=== PATIENT | female | born 1980 | race Caucasian/White ===

== ENCOUNTER 2022-01-25 23:11 | Emergency (ER) | payer OTHER, SELFPAY ==
[2022-01-25 23:26] VITALS: BP 199/93; PULSE 60; RESP 16; TEMP 36.2; O2SAT 97; BMI 33.2
--- NOTE | 2022-01-25 23:36 | DI.RAD.S_ITS ---
PROCEDURE: XR CHEST 1V INDICATIONS: chest pain TECHNIQUE: One view of the chest was acquired. COMPARISON: [facility], , CHEST 1 VIEW, 04/21/2016, 13:06. FINDINGS: Surgical changes and devices: Left chest wall pacemaker and leads appear similar in position. Lungs and pleura: Lungs are clear. No pleural effusions or pneumothorax. Mediastinum: Mediastinal contours appear normal. Heart size is normal. Bones and chest wall: No suspicious bony lesions. Overlying soft tissues appear unremarkable. IMPRESSION: 1. No acute cardiopulmonary disease. Dictated by: Archie Caballero M.D. on 01/26/2022 at 1:07 Approved by: Archie Caballero M.D. on 01/26/2022 at 1:08
[2022-01-26 00:03] LABS: Add Manual Diff / Slide Review NO; Basophils Absolute Auto 100 /uL (0-100); Basophils Percent Auto 0.3 % (0-2); Eosinophils Absolute Auto 100 /uL (0-450); Eosinophils Percent Auto 0.8 % (2-4); Lymphocytes Absolute Auto 2000 /uL (1100-4500); Lymphocytes Percent Auto 13.1 % (25-40); Mean Corpuscular Hemoglobin 29.9 PG (26-34); Monocytes Absolute Auto 500 /uL (0-900); Monocytes Percent Auto 3.1 % (3-14); Neutrophils Absolute Auto 12500 /uL (1500-7000); Neutrophils Percent Auto 82.7 % (50-75); Platelet Count 183 X10^3/uL (150-400); Red Cell Distribution Width 14.2 % (11.6-14.8); White Blood Cell Count 15.1 X10^3/uL (4.5-11.0)
[2022-01-26 00:07] LABS: INR 1.1 (0.9-1.3); Prothrombin Time 12.1 SECONDS (10.1-12.7)
[2022-01-26 00:09] LABS: PTT Partial Thromboplastin Tim 31 SECONDS (26-36)
[2022-01-26 00:10] LABS: Alanine Aminotransferase 24 IU/L (<35); Albumin 4.1 g/dL (3.5-5.0); Albumin Globulin Ratio 1.3 (1.0-2.8); Alkaline Phosphatase 79 U/L (38-126); Aspartate Aminotransferase 19 IU/L (14-36); BUN Creatinine Ratio 25.6 (6-22); Bilirubin Total 0.3 mg/dL (0.2-1.3); Blood Urea Nitrogen 21 mg/dL (7-17); Calcium 8.3 mg/dL (8.4-10.2); Carbon Dioxide 24 mmol/L (22-32); Chloride 106 mmol/L (98-107); Creatine Kinase 61 U/L (30-135); Estimated Glomerular Filt Rate > 60 mL/min (>60); Globulin 3.1 g/dL (1.7-4.1); Glucose 181 mg/dL (70-100); HEMOLYSIS 18 (0-50); Lipase 66 U/L (23-300); Magnesium 1.9 mg/dL (1.6-2.3); Potassium 3.8 mmol/L (3.4-5.1); Sodium 137 mmol/L (137-145); Total Protein 7.2 g/dL (6.3-8.2)
--- NOTE | 2022-01-26 00:15 | ED.GENADULT ---
HPI - General Adult General Chief complaint: Dizziness Stated complaint: Dizzy.nausea/lt. hand/arm tingle Time Seen by Provider: 01/25/22 23:33 Source: patient Mode of arrival: Ambulatory Limitations: no limitations History of Present Illness HPI narrative: Patient is a 42-year-old female. 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 This has been in place for many years. She is not on anti coagulation. She states she has had a couple episodes that last less than 2 minutes of sudden onset of some dizziness. This is more of a swing from [id number] and not a room spinning/vertigo sensation. Is associated with some nausea. She then states she starts to feel like she has some tingling that starts in her left fingers and moves up her arm. No chest pain. No palpitations. No shortness of breath. Symptoms lasts for short periods of time. Somewhat better when she closes her eyes and waits for things to recover. The symptoms do completely recover. They have happened a couple times like this. Per her description it sounds like she does have a demand pacemaker although I am not 100% sure this. Related Data Home Medications Medication Instructions Recorded Confirmed levonorgestrel 20 mcg/24 hours (7 intrauterine 07/20/18/ yrs) 52 mg intrauterine device (Mirena) Allergies Allergy/AdvReac Type Severity Reaction Status Date / Time latex [LATEX] Allergy Unknown Unverified 02/23/18 10:32 Review of Systems Review of Systems ROS Unobtainable: All systems reviewed & are unremarkable except as noted in HPI and below Patient History Medical History Acute cholecystitis Pacemaker Strain of chest wall Social History Smoking Status: Current every day smoker Smoking Status: Current every day smoker Exam Initial Vital Signs Initial Vital Signs: Vital Signs Temperature 97.2 F L 01/25/22 23:26 Pulse Rate 60 01/25/22 23:26 Respiratory Rate 16 01/25/22 23:26 Blood Pressure 199/93 H 01/25/22 23:26 Pulse Oximetry 97 01/25/22 23:26 Oxygen Delivery Method 01/25/22 23:26 Const General: cooperative, comfortable and No ill appearing HENKS Head: normal to inspection and normocephalic Chest Chest: normal inspection of the chest Resp Effort & Inspection: normal respiratory effort Auscultation: clear to auscultation bilaterally Cardio Rate: regular rate Rhythm: regular rhythm GI Inspection: normal to inspection Skin General: no rashes or lesions noted Neuro General: patient alert, patient awake, patient oriented x3 and moves all extremities Speech: speech normal Gait: normal gait Extrem General: normal to inspection and capillary refill normal Psych Appearance: grossly normal and well kempt Course Orders Ordered: ED Orders 01/25/22 23:36 XR chest 1V Stat 01/25/22 23:43 EKG-12 Lead Stat 01/25/22 23:52 Complete Blood Count AUTO DIFF Stat Comprehensive Metabolic Panel Stat Lipase Stat Magnesium Stat Partial Thromboplastin Time Stat Prothrombin Time INR Stat Troponin & CK Cardiac Panel Stat Vital Signs Vital signs: Vital Signs - 8 hr 01/25/22 23:26 01/26/22 01:42 Temperature 97.2 F L Pulse Rate 60 Respiratory Rate 16 17 Blood Pressure 199/93 H 179/87 H Pulse Oximetry 97 97 Oxygen Delivery Method Room Air Room Air Medical Decision Making Lab Data Lab results reviewed: Yes I reviewed the patient's lab results. Result diagrams: 01/25/22 23:52 01/25/22 23:52 Labs: Lab Results 01/25/22 01/25/22 01/25/22 Range/Units 23:52 23:52 23:52 WBC 15.1 H (4.5-11.0) X10^3/uL RBC 5.00 (4.0-5.2) X10^6/uL Hgb 15.0 (12.0-16.0) g/dL Hct 44.0 (36-46) % MCV 88.0 (80-100) fL MCH 29.9 (26-34) PG MCHC 34.0 (30-36) % RDW 14.2 (11.6-14.8) % Plt Count 183 (150-400) X10^3/uL Neut % (Auto) 82.7 H (50-75) % Lymph % (Auto) 13.1 L (25-40) % [place] % (Auto) 3.1 (3-14) % Eos % (Auto) 0.8 L (2-4) % Baso % (Auto) 0.3 (0-2) % Neut # (Auto) 77445 H (6376-7456) /uL Lymph # (Auto) 2000 (6987-9363) /uL [place] # (Auto) 500 (0-900) /uL Eos # (Auto) 100 (0-450) /uL Baso # (Auto) 100 (0-100) /uL PT 12.1 (10.1-12.7) SECONDS INR 1.1 (0.9-1.3) APTT 31 (26-36) SECONDS Sodium 137 (137-145) mmol/L Potassium 3.8 (3.4-5.1) mmol/L Chloride 106 (98-107) mmol/L Carbon Dioxide 24 (22-32) mmol/L BUN 21 H (7-17) mg/dL Creatinine 0.82 (0.52-1.04) mg/dL Estimated GFR > 60 (>60) mL/min BUN/Creatinine Ratio 25.6 H (6-22) Glucose 181 H (70-100) mg/dL Calcium 8.3 L (8.4-10.2) mg/dL Magnesium 1.9 (1.6-2.3) mg/dL Total Bilirubin 0.3 (0.2-1.3) mg/dL AST 19 (14-36) IU/L ALT 24 (<35) IU/L Alkaline Phosphatase 79 (38-126) U/L Total Creatine Kinase 61 (30-135) U/L CK-MB (CK-2) TNP CK-MB (CK-2) Rel Index TNP Troponin I < 0.012 (0.01-0.034) ng/mL Total Protein 7.2 (6.3-8.2) g/dL Albumin 4.1 (3.5-5.0) g/dL Globulin 3.1 (1.7-4.1) g/dL Albumin/Globulin Ratio 1.3 (1.0-2.8) Lipase 66 (23-300) U/L Imaging Data Chest x-ray: Radiologist's Impression: [address] [address] XRay Report Signed Patient: Jana Jiménez MR#: [id number] : 1980 Acct:[id number] Age/Sex: 41 / F Date of Service: 01/25/22 Loc: ED Accession Number: [id number] ?? Procedure: XR chest 1V Ordering Provider: Jesus Stallings D.O. PROCEDURE:? XR CHEST 1V ? INDICATIONS:? chest pain ? TECHNIQUE:? One view of the chest was acquired.? ? COMPARISON:? , , CHEST 1 VIEW, 04/21/2016, 13:06. ? FINDINGS:? ? Surgical changes and devices:? Left chest wall pacemaker and leads appear similar in position.? ? Lungs and pleura:? Lungs are clear.? No pleural effusions or pneumothorax.? ? Mediastinum:? Mediastinal contours appear normal.? Heart size is normal.? ? Bones and chest wall:? No suspicious bony lesions.? Overlying soft tissues appear unremarkable.? ? IMPRESSION:? ? 1.? No acute cardiopulmonary disease. ? ? ? Dictated by: Archie Caballero M.D. on 01/26/2022 at 1:07 ? ? Approved by: Archie Caballero M.D. on 01/26/2022 at 1:08?? ECG Data Attestation: I personally reviewed and interpreted this ECG as follows: Interpretation: Atrially sensed ventricularly paced Rate is 67 Normal QRS Normal QTC MDM Narrative Medical decision making narrative: Patient is paced on the EKG. Patient seems surprised by this she states the last time her pacemaker is interrogated she is only been paced about 4% of the time. Other than that her EKG is unremarkable. Labs are unremarkable except for leukocytosis. Did not have any source of specific infection. She is currently asymptomatic and has a nonfocal neurologic exam. Her electrolytes are unremarkable. I have low suspicion for CVA. Low suspicion for TIA given her presenting symptoms. Unsure the exact etiology. Potentially could be having episodes of dizziness/vertigo which causes her to have the distal paresthesias that resolve on their own she states that the symptoms do seem to get better when she closes her eyes and puts her head back slightly. Also discussed the possibility that she is having episodes of bradycardia has maybe becoming symptomatic before her pacemaker engages. Patient would not be able to correlate times of bradycardia with her symptoms she does not know exactly when the symptoms have occurred so interrogating the pacemaker tonight would provide little information. I did inform the patient I did not feel that her symptoms were emergent or life-threatening in nature. She understands that there is not a exact diagnosis. She will contact her registered medical transcriptionist for follow-up and have her pacemaker interrogated as an outpatient. She was given specific return precautions. She expressed understanding and agreement. Discharge Plan Departure Patient Disposition: Home Clinical Impression: Distal paresthesia Instructions: DI for Numbness/Tingling Activity Restrictions/Additional Instructions: Continue to take all of your medications as directed. I do recommend that you contact your primary doctor and also your registered medical transcriptionist for follow-up. Return to the emergency department for any new or worsening symptoms. Prescriptions: No Action Mirena 20 mcg/24 hours (5 yrs) 52 mg intrauterine device Intrauterine Visit Report Forms: Patient Portal/API
[2022-01-26 00:22] LABS: Troponin I < 0.012 ng/mL (0.01-0.034)
[2022-01-26 01:42] VITALS: BP 179/87; RESP 17; O2SAT 97
== END 2022-01-26 01:42 | disposition home or self-care (01) ==
PROVIDERS: Emergency Provider Emergency Medicine
DX: R20.2 Paresthesia of skin (principal); R00.1 Bradycardia, unspecified; R07.9 Chest pain, unspecified; Z95.0 Presence of cardiac pacemaker
CPT/HCPCS: 36415; 71045; 80053; 82550; 82553; 83690; 83735; 84484; 85025; 85610; 85730; 93005; 93010; 99283; 99284

== ENCOUNTER 2022-09-15 19:57 | Emergency (ER) | payer OTHER, SELFPAY ==
[2022-09-15] VITALS (11 sets, daily range): BP systolic 148–200; BP diastolic 69–98; PULSE 72–83; RESP 11–32; TEMP 36.9; O2SAT 94–99; BMI 32.8
--- NOTE | 2022-09-15 20:07 | DI.RAD.S_ITS ---
PROCEDURE: XR CHEST 1V INDICATIONS: chest pain TECHNIQUE: One view of the chest was acquired. COMPARISON: [facility], CR, XR CHEST 1V, 01/25/2022, 23:39. FINDINGS: Surgical changes and devices: Left chest wall dual lead pacemaker redemonstrated. Lungs and pleura: Lungs are clear. No pleural effusions or pneumothorax. Mediastinum: Mediastinal contours appear normal. Heart size is normal. Bones and chest wall: No suspicious bony lesions. Overlying soft tissues appear unremarkable. IMPRESSION: 1. No acute cardiopulmonary disease. Dictated by: Archie Caballero M.D. on 09/15/2022 at 21:16 Approved by: Archie Caballero M.D. on 09/15/2022 at 21:16
[2022-09-15 20:16] LABS: Add Manual Diff / Slide Review NO; Basophils Absolute Auto 100 /uL (0-100); Basophils Percent Auto 0.9 % (0-2); Eosinophils Absolute Auto 300 /uL (0-450); Eosinophils Percent Auto 2.1 % (2-4); Hematocrit 43.8 % (36-46); Hemoglobin 14.9 g/dL (12.0-16.0); Lymphocytes Absolute Auto 3400 /uL (1100-4500); Lymphocytes Percent Auto 28.2 % (25-40); Mean Corpuscular Hemoglobin 30.4 PG (26-34); Mean Corpuscular Volume 89.3 fL (80-100); Monocytes Absolute Auto 500 /uL (0-900); Monocytes Percent Auto 3.8 % (3-14); Neutrophils Absolute Auto 7800 /uL (1500-7000); Platelet Count 197 X10^3/uL (150-400); Red Cell Distribution Width 14.4 % (11.6-14.8); White Blood Cell Count 12.1 X10^3/uL (4.5-11.0)
[2022-09-15] MEDS: ASPIRIN 81 MG CHEW TAB 324 MG PO (20:21)
[2022-09-15 20:22] LABS: Prothrombin Time 11.4 SECONDS (10.1-12.7)
[2022-09-15 20:25] LABS: PTT Partial Thromboplastin Tim 32 SECONDS (26-36)
[2022-09-15 20:32] LABS: Alanine Aminotransferase 20 IU/L (<35); Albumin Globulin Ratio 1.3 (1.0-2.8); Alkaline Phosphatase 63 U/L (38-126); Aspartate Aminotransferase 22 IU/L (14-36); BUN Creatinine Ratio 22.1 (6-22); Bilirubin Total 0.4 mg/dL (0.2-1.3); Blood Urea Nitrogen 17 mg/dL (7-17); Calcium 8.9 mg/dL (8.4-10.2); Carbon Dioxide 25 mmol/L (22-32); Chloride 105 mmol/L (98-107); Creatine Kinase 64 U/L (30-135); Estimated Glomerular Filt Rate > 60 mL/min (>60); Glucose 137 mg/dL (70-100); Lipase 71 U/L (23-300); Magnesium 1.8 mg/dL (1.6-2.3); Potassium 3.8 mmol/L (3.4-5.1); Sodium 138 mmol/L (137-145)
[2022-09-15 20:44] LABS: Troponin I < 0.012 ng/mL (0.01-0.034)
[2022-09-15 20:52] LABS: COVID19 -Nasal RAPID Negative (Negative)
[2022-09-15 20:54] LABS: HEMOLYSIS 60 (0-50)
--- NOTE | 2022-09-15 21:17 | ED.CHESTPAIN ---
HPI - Chest Pain General Chief Complaint: Chest Pain Stated Complaint: Chest pain, Breathing pain Time Seen by Provider: 09/15/22 20:12 Source: patient Mode of arrival: Family Vehicle Limitations: no limitations History of Present Illness HPI narrative: Patient is a 42-year-old female with history of pacemaker secondary to bradycardia after with twins presents today with chest discomfort. She says it started yesterday tried her epigastric region radiates around her bra line it has been pretty constant for 24 hours. She describes it as heaviness. She sometimes feel short of breath but not too bad. She denies any cough fever body aches nausea vomiting or abdominal pain. She is no significant swelling in her legs. It sounds as though when she was diagnosed with her bradycardia she was put on BiPAP but she has no further history of like congestive heart failure. Related Data Home Medications Medication Instructions Recorded Confirmed levonorgestrel 21 mcg/24 hours (8 intrauterine 07/20/18// yrs) 52 mg intrauterine device (Mirena) Allergies Allergy/AdvReac Type Severity Reaction Status Date / Time latex [LATEX] Allergy Unknown Verified 09/15/22 20:13 Review of Systems Review of Systems ROS Unobtainable: All systems reviewed & are unremarkable except as noted in HPI and below Patient History Medical History Acute cholecystitis Pacemaker Strain of chest wall Social History Smoking Status: Current every day smoker Smoking Status: Current every day smoker tobacco type: cigarettes alcohol intake frequency: 0-2 drinks per day Substance Use Type: does not use Exam Initial Vital Signs Initial Vital Signs: Vital Signs Pulse Rate 83 09/15/22 20:06 Respiratory Rate 12 09/15/22 20:06 Blood Pressure 200/98 H 09/15/22 20:06 Pulse Oximetry 95 09/15/22 20:06 GENERAL: Alert pleasant well-appearing 42-year-old female HEENT: Head atraumatic,EOMI, pupils reactive, face symmetric, CARDIOVASCULAR: Regular rate and rhythm without murmurs, rubs or gallops. RESPIRATORY: Breath sounds equal bilaterally, no wheezes rales or rhonchi. ABDOMEN: Soft, nontender. Normoactive bowel sounds all 4 quadrants. No guarding or rebound. EXTREMITIES: Normal range of motion, no clubbing or edema. Neurovascularly intact NEUROLOGICAL: Alert and oriented x4. SKIN: Warm, dry, no laceration, no petechiae, no rashes or lesions. Scores HEART Score Heart Score history: Moderately Suspicious Heart Score EKG: Normal Heart Score Age: < 45 years old Heart Score risk factors: No known risk factors Heart Score troponin: < or = to normal limit Heart Score Total: 1 PERC Score Age greater than or equal to 50 years: No Heart rate greater than or equal to 100 bpm: No Room Air O2 Sat less than 95%: No Unilateral leg swelling: No Recent trauma or surgery: No Hemoptysis: No Prior PE or DVT: No Hormone Use: No Total PERC Score: 0 Course Orders Ordered: ED Orders 09/15/22 20:07 XR chest 1V Stat EKG-12 Lead Stat 09/15/22 20:08 BNP [NT-proBNP (BNP-Adult 18+)] Stat Complete Blood Count AUTO DIFF Stat Comprehensive Metabolic Panel Stat D Dimer Stat Lipase Stat Magnesium Stat PTT Partial Thromboplastin Brian Stat Test [HCG Quantitative /Beta subunit] Stat Prothrombin Time INR Stat Troponin & CK Cardiac Panel Stat 09/15/22 20:22 COVID19 -Nasal RAPID Stat 09/15/22 22:07 CT angio chest PE protocol Stat 09/15/22 22:10 Trop I [Troponin I] Stat Discontinued Medications Albuterol (Albuterol 2.5 Mg/3 Ml Neb (Adult)) 2.5 mg INH NOW ONE Stop: 09/15/22 21:28 Last Admin: 09/15/22 21:37 Dose: 2.5 mg Documented By: ALEXI Aspirin (Aspirin 81 Mg Chew Tab) 324 mg PO NOW ONE Stop: 09/15/22 20:08 Last Admin: 09/15/22 20:21 Dose: 324 mg Documented By: SHASTA Nitroglycerin (Nitroglycerin 0.4 Mg Sl Tab) 0.4 mg SL NOW ONE Stop: 09/15/22 22:11 Last Admin: 09/15/22 22:14 Dose: 0.4 mg Documented By: SHASTA Vital Signs Vital signs: Vital Signs - 8 hr 09/15/22 20:08 09/15/22 20:06 09/15/22 20:06 Temperature 98.5 F Pulse Rate 80 83 Respiratory Rate 19 12 Blood Pressure 200/98 H 200/98 H Pulse Oximetry 96 95 Oxygen Delivery Method Room Air Oxygen Flow Rate Fraction of Inspired Oxygen 09/15/22 20:30 09/15/22 20:31 09/15/22 20:31 Temperature Pulse Rate 80 80 Respiratory Rate 11 L 13 Blood Pressure 151/72 H Pulse Oximetry 96 95 Oxygen Delivery Method Oxygen Flow Rate Fraction of Inspired Oxygen 09/15/22 21:00 09/15/22 21:00 09/15/22 21:37 Temperature Pulse Rate 79 79 Respiratory Rate 16 16 Blood Pressure 150/74 H Pulse Oximetry 96 96 Oxygen Delivery Method Room Air Oxygen Flow Rate 0 Fraction of Inspired Oxygen 21 09/15/22 21:30 09/15/22 21:30 09/15/22 22:00 Temperature Pulse Rate 75 Respiratory Rate 19 Blood Pressure 159/90 H 148/69 H Pulse Oximetry 95 Oxygen Delivery Method Oxygen Flow Rate Fraction of Inspired Oxygen 09/15/22 22:00 09/15/22 22:32 09/15/22 23:00 Temperature Pulse Rate 77 75 77 Respiratory Rate 18 32 H 21 Blood Pressure Pulse Oximetry 94 99 96 Oxygen Delivery Method Oxygen Flow Rate Fraction of Inspired Oxygen 09/15/22 23:31 Temperature Pulse Rate 72 Respiratory Rate 18 Blood Pressure 172/95 H Pulse Oximetry 96 Oxygen Delivery Method Room Air Oxygen Flow Rate Fraction of Inspired Oxygen MDM - Chest Pain Lab Data 09/15/22 20:08 09/15/22 20:08 Labs: Lab Results 09/15/22 09/15/22 09/15/22 Range/Units 20:08 20:08 20:08 WBC 12.1 H (4.5-11.0) X10^3/uL RBC 4.90 (4.0-5.2) X10^6/uL Hgb 14.9 (12.0-16.0) g/dL Hct 43.8 (36-46) % MCV 89.3 (80-100) fL MCH 30.4 (26-34) PG MCHC 34.0 (30-36) % RDW 14.4 (11.6-14.8) % Plt Count 197 (150-400) X10^3/uL Neut % (Auto) 65.0 (50-75) % Lymph % (Auto) 28.2 (25-40) % [place] % (Auto) 3.8 (3-14) % Eos % (Auto) 2.1 (2-4) % Baso % (Auto) 0.9 (0-2) % Neut # (Auto) 7800 H (5300-6068) /uL Lymph # (Auto) 3400 (3570-5974) /uL [place] # (Auto) 500 (0-900) /uL Eos # (Auto) 300 (0-450) /uL Baso # (Auto) 100 (0-100) /uL PT 11.4 (10.1-12.7) SECONDS INR 1.0 (0.9-1.3) APTT 32 (26-36) SECONDS D-Dimer (<500) ng/ml Sodium 138 (137-145) mmol/L Potassium 3.8 (3.4-5.1) mmol/L Chloride 105 (98-107) mmol/L Carbon Dioxide 25 (22-32) mmol/L BUN 17 (7-17) mg/dL Creatinine 0.77 (0.52-1.04) mg/dL Estimated GFR > 60 (>60) mL/min BUN/Creatinine Ratio 22.1 H (6-22) Glucose 137 H (70-100) mg/dL Calcium 8.9 (8.4-10.2) mg/dL Magnesium 1.8 (1.6-2.3) mg/dL Total Bilirubin 0.4 (0.2-1.3) mg/dL AST 22 (14-36) IU/L ALT 20 (<35) IU/L Alkaline Phosphatase 63 (38-126) U/L Total Creatine Kinase 64 (30-135) U/L CK-MB (CK-2) TNP CK-MB (CK-2) Rel Index TNP Troponin I < 0.012 (0.01-0.034) ng/mL NT-Pro-B Natriuret Pep (<125) pg/mL Total Protein 7.0 (6.3-8.2) g/dL Albumin 4.0 (3.5-5.0) g/dL Globulin 3.0 (1.7-4.1) g/dL Albumin/Globulin Ratio 1.3 (1.0-2.8) Lipase 71 (23-300) U/L HCG, Quant mIU/mL SARS-CoV-2 (PCR) (Negative) 09/15/22 09/15/22 09/15/22 Range/Units 20:08 20:08 20:08 WBC (4.5-11.0) X10^3/uL RBC (4.0-5.2) X10^6/uL Hgb (12.0-16.0) g/dL Hct (36-46) % MCV (80-100) fL MCH (26-34) PG MCHC (30-36) % RDW (11.6-14.8) % Plt Count (150-400) X10^3/uL Neut % (Auto) (50-75) % Lymph % (Auto) (25-40) % [place] % (Auto) (3-14) % Eos % (Auto) (2-4) % Baso % (Auto) (0-2) % Neut # (Auto) (1769-5701) /uL Lymph # (Auto) (5465-8751) /uL [place] # (Auto) (0-900) /uL Eos # (Auto) (0-450) /uL Baso # (Auto) (0-100) /uL PT (10.1-12.7) SECONDS INR (0.9-1.3) APTT (26-36) SECONDS D-Dimer 626 H (<500) ng/ml Sodium (137-145) mmol/L Potassium (3.4-5.1) mmol/L Chloride (98-107) mmol/L Carbon Dioxide (22-32) mmol/L BUN (7-17) mg/dL Creatinine (0.52-1.04) mg/dL Estimated GFR (>60) mL/min BUN/Creatinine Ratio (6-22) Glucose (70-100) mg/dL Calcium (8.4-10.2) mg/dL Magnesium (1.6-2.3) mg/dL Total Bilirubin (0.2-1.3) mg/dL AST (14-36) IU/L ALT (<35) IU/L Alkaline Phosphatase (38-126) U/L Total Creatine Kinase (30-135) U/L CK-MB (CK-2) CK-MB (CK-2) Rel Index Troponin I (0.01-0.034) ng/mL NT-Pro-B Natriuret Pep 68 (<125) pg/mL Total Protein (6.3-8.2) g/dL Albumin (3.5-5.0) g/dL Globulin (1.7-4.1) g/dL Albumin/Globulin Ratio (1.0-2.8) Lipase (23-300) U/L HCG, Quant < 2.4 mIU/mL SARS-CoV-2 (PCR) (Negative) 09/15/22 09/15/22 Range/Units 20:22 22:10 WBC (4.5-11.0) X10^3/uL RBC (4.0-5.2) X10^6/uL Hgb (12.0-16.0) g/dL Hct (36-46) % MCV (80-100) fL MCH (26-34) PG MCHC (30-36) % RDW (11.6-14.8) % Plt Count (150-400) X10^3/uL Neut % (Auto) (50-75) % Lymph % (Auto) (25-40) % [place] % (Auto) (3-14) % Eos % (Auto) (2-4) % Baso % (Auto) (0-2) % Neut # (Auto) (5678-7138) /uL Lymph # (Auto) (2357-9079) /uL [place] # (Auto) (0-900) /uL Eos # (Auto) (0-450) /uL Baso # (Auto) (0-100) /uL PT (10.1-12.7) SECONDS INR (0.9-1.3) APTT (26-36) SECONDS D-Dimer (<500) ng/ml Sodium (137-145) mmol/L Potassium (3.4-5.1) mmol/L Chloride (98-107) mmol/L Carbon Dioxide (22-32) mmol/L BUN (7-17) mg/dL Creatinine (0.52-1.04) mg/dL Estimated GFR (>60) mL/min BUN/Creatinine Ratio (6-22) Glucose (70-100) mg/dL Calcium (8.4-10.2) mg/dL Magnesium (1.6-2.3) mg/dL Total Bilirubin (0.2-1.3) mg/dL AST (14-36) IU/L ALT (<35) IU/L Alkaline Phosphatase (38-126) U/L Total Creatine Kinase (30-135) U/L CK-MB (CK-2) CK-MB (CK-2) Rel Index Troponin I < 0.012 (0.01-0.034) ng/mL NT-Pro-B Natriuret Pep (<125) pg/mL Total Protein (6.3-8.2) g/dL Albumin (3.5-5.0) g/dL Globulin (1.7-4.1) g/dL Albumin/Globulin Ratio (1.0-2.8) Lipase (23-300) U/L HCG, Quant mIU/mL SARS-CoV-2 (PCR) Negative (Negative) Imaging Data Chest x-ray: Radiologist's Impression: PROCEDURE:? XR CHEST 1V ? INDICATIONS:? chest pain ? TECHNIQUE:? One view of the chest was acquired.? ? COMPARISON:? [facility], CR, XR CHEST 1V, 01/25/2022, 23:39. ? FINDINGS:? ? Surgical changes and devices:? Left chest wall dual lead pacemaker redemonstrated.? ? Lungs and pleura:? Lungs are clear.? No pleural effusions or pneumothorax.? ? Mediastinum:? Mediastinal contours appear normal.? Heart size is normal.? ? Bones and chest wall:? No suspicious bony lesions.? Overlying soft tissues appear unremarkable.? ? IMPRESSION:? ? 1.? No acute cardiopulmonary disease. ? ? ? Dictated by: Archie Caballero M.D. on 09/15/2022 at 21:16 ? ? Approved by: Archie Caballero M.D. on 09/15/2022 at 21:16 ? CT scan - chest: Radiologist's Impression: PROCEDURE:? CT ANGIO CHEST PE PROTOCOL ? INDICATIONS:? chest pain and sob ? TECHNIQUE:? After the administration of intravenous contrast, 2 mm thick sections acquired from the pulmonary apices to the posterior costophrenic angles.? 3-dimensional maximum intensity projection (MIP) coronal and sagittal reformats were then acquired through the thorax.? For radiation dose reduction, the following was used:? automated exposure control, adjustment of mA and/or kV according to patient size.? ? COMPARISON:? [facility], CT, PE STUDY (CTA CHEST), 11/05/2012, 4:30. ? FINDINGS:? Image quality:? Excellent.? ? Pulmonary arteries:? Pulmonary arteries are normal in size, and demonstrate no intraluminal filling defects to suggest central pulmonary embolism.? ? Lower Neck: No lymphadenopathy by size criteria. Thyroid:? Visualized thyroid demonstrates no discrete nodules. Axillae: No lymphadenopathy by size criteria. Chest Wall:? Unremarkable.? Bones: Visualized osseous structures demonstrate no suspicious lesions. ? Lungs and Airways:? No acute consolidation.? There are few patchy indistinct ground-glass opacities bilaterally with a posterior basilar predominance suggestive of atelectasis.? No suspicious pulmonary nodules. The trachea and central airways are patent. Pleura: No pneumothorax or pleural effusions.? ? Heart: Heart size is normal.? No pericardial effusion. Thoracic Vessels: The thoracic aorta is normal in size.? Mediastinum and [place]: No lymphadenopathy by size criteria. Esophagus: No wall thickening. No hiatal hernia. ? Abdomen:? Visualized upper abdominal solid organs appear normal in the early arterial phase of enhancement.? ? IMPRESSION:? ? 1. No evidence of pulmonary embolism. ? 2. No acute consolidation. ? 3. Bilateral indistinct ground-glass opacities suggestive of atelectasis.? The differential includes mild pulmonary edema or an infectious or inflammatory process.? ? ? Dictated by: Archie Caballero M.D. on 09/15/2022 at 22:58 ? ? Approved by: Archie Caballero M.D. on 09/15/2022 at 23:19 ? ECG Data Interpretation: Sinus rhythm rate 86 KS 204 QRS [address] changes no T-wave inversions similar to previous EKG 2. Sinus rhythm rate 66 KS interval [address] changes similar to prior MDM Narrative Medical decision making narrative: Patient is a 42-year-old female history of pacemaker secondary to bradycardia presents today with epigastric pain radiating around to her back. It has been constant for about 24 hours nothing makes it better or worse. She has 2- troponins negative chest x-ray normal EKG. Blood work is overall reassuring no leukocytosis anemia electrolyte abnormality or PANFILO. D-dimer was slightly elevated at 626 with a negative PERC score. He had no relief with albuterol or nitroglycerin. CT angio did not show any pulmonary embolism. Her COVID test was negative. Pain seems to be going more around the left rather than right. She is no right upper quadrant pain negative bilirubin liver enzymes unlikely to be cholelithiasis/cholecystitis. At this time recommend outpatient follow-up. However with pain being constant this is atypical for cardiac. Possible other viral etiology but she has not have any fever or infectious symptoms. Discharge Plan Departure Patient Disposition: Home Clinical Impression: Atypical chest pain Instructions: DI for Atypical Chest Pain Activity Restrictions/Additional Instructions: *You have been diagnosed with atypical chest pain *What to do: At this time had full workup in the emergency department. You may require further cardiac testing with your primary care or your preparation plant repairer. You have not yet had a stress test or an echocardiogram. If you continue to have symptoms return to the emergency department. *Continue to take medications as directed [At your request you're medications have been faxed to] *Follow up with your primary care provider in 2-3 days or call [phone] [and follow up with ortho, urology etc] *Return to ER if you should have [such as] [or] any new, worsening or concerning symptoms Prescriptions: No Action Mirena 20 mcg/24 hours (5 yrs) 52 mg intrauterine device Intrauterine Stand Alone Forms: Patient Portal/API
[2022-09-15] MEDS: ALBUTEROL 2.5 MG/3 ML NEB (ADULT) INH (21:37)
[2022-09-15 21:50] LABS: D Dimer 626 ng/ml (<500)
--- NOTE | 2022-09-15 22:07 | DI.CT.S_ITS ---
PROCEDURE: CT ANGIO CHEST PE PROTOCOL INDICATIONS: chest pain and sob TECHNIQUE: After the administration of intravenous contrast, 2 mm thick sections acquired from the pulmonary apices to the posterior costophrenic angles. 3-dimensional maximum intensity projection (MIP) coronal and sagittal reformats were then acquired through the thorax. For radiation dose reduction, the following was used: automated exposure control, adjustment of mA and/or kV according to patient size. COMPARISON: [facility], CT, PE STUDY (CTA CHEST), 11/05/2012, 4:30. FINDINGS: Image quality: Excellent. Pulmonary arteries: Pulmonary arteries are normal in size, and demonstrate no intraluminal filling defects to suggest central pulmonary embolism. Lower Neck: No lymphadenopathy by size criteria. Thyroid: Visualized thyroid demonstrates no discrete nodules. Axillae: No lymphadenopathy by size criteria. Chest Wall: Unremarkable. Bones: Visualized osseous structures demonstrate no suspicious lesions. Lungs and Airways: No acute consolidation. There are few patchy indistinct ground-glass opacities bilaterally with a posterior basilar predominance suggestive of atelectasis. No suspicious pulmonary nodules. The trachea and central airways are patent. Pleura: No pneumothorax or pleural effusions. Heart: Heart size is normal. No pericardial effusion. Thoracic Vessels: The thoracic aorta is normal in size. Mediastinum and Kanchan: No lymphadenopathy by size criteria. Esophagus: No wall thickening. No hiatal hernia. Abdomen: Visualized upper abdominal solid organs appear normal in the early arterial phase of enhancement. IMPRESSION: 1. No evidence of pulmonary embolism. 2. No acute consolidation. 3. Bilateral indistinct ground-glass opacities suggestive of atelectasis. The differential includes mild pulmonary edema or an infectious or inflammatory process. Dictated by: Archie Caballero M.D. on 09/15/2022 at 22:58 Approved by: Archie Caballero M.D. on 09/15/2022 at 23:19
[2022-09-15 22:10] LABS: NT-proBNP (BNP-Adult 18+) 68 pg/mL (<125)
[2022-09-15] MEDS: NITROGLYCERIN 0.4 MG SL TAB SL (22:14)
[2022-09-15 22:37] LABS: Troponin I < 0.012 ng/mL (0.01-0.034)
[2022-09-15 22:39] LABS: HCG Quantitative /Beta subunit < 2.4 mIU/mL
== END 2022-09-15 23:36 | disposition home or self-care (01) ==
PROVIDERS: Emergency Provider Emergency Medicine
DX: R07.89 Other chest pain (principal); R06.02 Shortness of breath; R79.89 Other specified abnormal findings of blood chemistry; Z95.0 Presence of cardiac pacemaker; Z20.822 Contact with and (suspected) exposure to COVID-19
CPT/HCPCS: 36415; 71045; 71275; 80053; 82550; 83690; 83735; 83880; 84484; 84702; 85025; 85379; 85610; 85730; 87635; 93005; 93010; 94640; 99284; C9803; J7613; Q9967

== ENCOUNTER → 2023-03-28 16:01 | Outpatient (CLI) | payer OTHER, SELFPAY ==
--- NOTE | 2023-03-28 | DI.MG.S_ITS ---
BILATERAL DIGITAL SCREENING MAMMOGRAM 3D/2D WITH CAD: 03/28/2023 CLINICAL: Routine screening. Family history of breast cancer. Comparison is made to exam dated: 01/18/2015 mammogram - [facility]. There are scattered areas of fibroglandular density in both breasts (category b / 25%-50% glandular tissue). Current study was also evaluated with a Computer Aided Detection (CAD) system. No significant masses, calcifications, or other findings are seen in either breast. IMPRESSION: NEGATIVE There is no mammographic evidence of malignancy. A 1 year screening mammogram is recommended. Based on the Tyrer Cuzick model (a risk assessment model) the patient's lifetime risk is 12.4% and her 10 year risk is 2.0%. According to the ACR, ACS, and NCCN guidelines, an annual breast MRI exam along with mammogram is recommended if the patient's lifetime risk is 20% or greater. This exam was interpreted at Station ID: [id number]. NOTE: For mammograms, a report in lay terms will be sent to the patient. Approximately 15% of breast malignancies will not be visualized mammographically. In the management of a palpable breast mass, a negative mammogram must not discourage biopsy of a clinically suspicious lesion. Electronically Signed By: Marcela Ortega M.D., PH.D solo/ange:03/29/2023 23:16:56 letter sent: Normal Exam ACR BI-RADS Category 1: Negative [id number]
== END ==
PROVIDERS: Referring Provider Nurse Practitioner Primary Care; Visit Provider Nurse Practitioner Primary Care
DX: Z12.31 Encounter for screening mammogram for malignant neoplasm of breast (principal); Z80.3 Family history of malignant neoplasm of breast
CPT/HCPCS: 77063; 77067

== ENCOUNTER → 2024-09-06 17:38 | Outpatient (CLI) | payer OTHER, SELFPAY ==
--- NOTE | 2024-09-06 17:42 | DI.MG.S_ITS ---
MM screening mammo BI: 09/06/2024. BI-RADS: 1 CLINICAL: 44-year old female for bilateral screening mammogram. Tyrer-Cuzick lifetime risk of 19.6%. No personal or first-degree family history of breast cancer. Current reported family history of breast cancer: paternal aunt. PRIOR EXAMS 03/28/2023, 01/18/2015. MAMMOGRAPHY TECHNIQUE: 2D and 3D (tomosynthesis) digital mammographic views obtained, with additional images as needed for full coverage. Current study was also evaluated with a Computer Aided Detection (CAD) system. DENSITY C. The breasts are heterogeneously dense, which may obscure small masses. MAMMOGRAPHY FINDINGS Bilateral: No suspicious mass, asymmetry, microcalcification, or other abnormality seen. IMPRESSION: * No evidence of malignancy. RECOMMENDATIONS Bilateral * Annual screening mammography. OVERALL ASSESSMENT CATEGORY BI-RADS-1: Negative. The [employer] recommends annual screening mammography beginning at age 40 for women with average risk of breast cancer. ELECTRONICALLY SIGNED: Tacho Savage M.D. on 09/07/2024 at 11:43:44 AM PT Interpreting Station ID: [id number]
== END ==
PROVIDERS: Referring Provider Nurse Practitioner Primary Care; Visit Provider Nurse Practitioner Primary Care
DX: Z12.31 Encounter for screening mammogram for malignant neoplasm of breast (principal); R92.333 Mammographic heterogeneous density, bilateral breasts; Z80.3 Family history of malignant neoplasm of breast
CPT/HCPCS: 77063; 77067